=== PATIENT | female | born 1990 | race Caucasian/White ===

== ENCOUNTER → 2018-12-10 16:37 | Outpatient (CLI) | payer OTHER, SELFPAY ==
[2018-12-10 15:58] VITALS: BMI 28.0
[2018-12-10 17:11] LABS: Absolute Lymphocyte Count 2.22 X10^3/ul (0.83-4.51); Absolute Neutrophil Count 5.5 X10^3/uL (2.0-7.7); Basophil# 0.04 X10^3/uL; Basophil% 0.5 % (0-1); Eosinophil# 0.09 X10^3/uL; Eosinophils% 1.1 % (0-5); Lymphocyte # 2.22 X10^3/ul (4.0); Lymphocyte % 26.1 % (19-41); Mean Corp Hgb Conc 32.5 g/gl (32-36); Mean Platelet Vol. 9.8 fl (6.2-12.0); Monocyte# 0.65 X10^3/uL; Monocyte% 7.6 % (0-10); Neutrophil # 5.51 X10^3/uL (2.7-7.7); Neutrophil % 64.6 % (47-70); POSITIVE COUNT NO; POSITIVE DIFFERENTIAL NO; POSITIVE MORPHOLOGY NO; Platelet Count 305 K/mm3 (150-450); RBC Distribution Width CV 12.8 % (11.6-14.6); RBC Distribution Width SD 39.7 fl (35.1-43.9); Red Blood Count 4.65 M/mm3 (4.2-5.4); White Blood Count 8.5 K/mm3 (4.4-11.0)
[2018-12-10 17:49] LABS: Anion Gap 6 (5-15); BUN 12 mg/dL (7-18); BUN/Creat Ratio 20.1 RATIO (10-20); Calcium,Total 8.5 mg/dL (8.5-10.1); Chloride 110 mmol/L (98-107); EST Glomerular Filtration Rate 127 mL/min (>60); Est Glom Filt Rate - Afr Amer 154 mL/min (>60); Glucose 85 mg/dL (74-106); Potassium 3.6 mmol/L (3.5-5.1); Sodium Level 140 mmol/L (136-145); Thyroid Stim Hormone (TSH) 0.86 uIU/mL (0.358-3.74)
== END ==
LOC: LAB 16:40
PROVIDERS: Family Provider Family Medicine; PCP Family Medicine; Referring Provider Family Medicine; Visit Provider Family Medicine
DX: F32.9 Major depressive disorder, single episode, unspecified (principal); F41.9 Anxiety disorder, unspecified; R68.89 Other general symptoms and signs
CPT/HCPCS: 36415; 80048; 84443; 85025

== ENCOUNTER → 2019-10-14 10:37 | Outpatient (CLI) | payer OTHER, SELFPAY ==
[2019-10-14 10:27] VITALS: BMI 28.0
[2019-10-14 12:41] LABS: Absolute Lymphocyte Count 2.11 X10^3/uL (0.83-4.51); Absolute Neutrophil Count 4.3 X10^3/uL (2.0-7.7); Basophil# 0.04 X10^3/uL; Basophil% 0.6 % (0-1); Eosinophil# 0.09 X10^3/uL; Eosinophils% 1.3 % (0-5); Hemoglobin 12.7 g/dL (12.0-15.0); Lymphocyte # 2.11 X10^3/ul (4.0); Lymphocyte % 29.6 % (19-41); Mean Corp Hgb Conc 31.8 g/dL (32-36); Mean Corpuscular Hgb 27.9 pg (27.0-32.0); Mean Corpuscular Volume 87.7 fL (81-99); Mean Platelet Vol. 10.6 fl (6.2-12.0); Monocyte# 0.55 X10^3/uL; Monocyte% 7.7 % (0-10); NRBC Flagged by Analyzer 0 % (0-5); Neutrophil # 4.32 X10^3/uL (2.7-7.7); Neutrophil % 60.4 % (47-70); Platelet Count 300 K/mm3 (150-450); RBC Distribution Width CV 12.5 % (11.6-14.6); Red Blood Count 4.56 M/mm3 (4.2-5.4); White Blood Count 7.1 K/mm3 (4.4-11.0)
== END ==
PROVIDERS: Family Provider Internal Medicine; PCP Family Medicine; Visit Provider Family Medicine
DX: R53.83 Other fatigue (principal)
CPT/HCPCS: 36415; 85025

== ENCOUNTER → 2021-02-16 11:05 | Outpatient (CLI) | payer MEDICAID, SELFPAY ==
[2019-10-14 10:27] VITALS: BMI 28.0
[2021-02-16 13:15] LABS: Hematocrit 30.7 % (37-47); Hemoglobin 9.5 g/dL (12.0-15.0); Mean Corp Hgb Conc 30.9 g/dL (32-36); Mean Corpuscular Hgb 26.3 pg (27.0-32.0); Mean Platelet Vol. 9.8 fl (6.2-12.0); Platelet Count 315 K/mm3 (150-450); RBC Distribution Width SD 39.8 fl (35.1-43.9); Red Blood Count 3.61 M/mm3 (4.2-5.4); White Blood Count 13.5 K/mm3 (4.4-11.0)
[2021-02-16 13:21] LABS: Glucose Challenge Gest 1H 50g 97 mg/dL (70-140)
== END ==
PROVIDERS: PCP Family Medicine; Visit Provider Obstetrics & Gynecology
DX: Z34.83 Encounter for supervision of other normal pregnancy, third trimester (principal)
CPT/HCPCS: 36415; 82950; 85027

== ENCOUNTER → 2021-04-13 14:30 | Outpatient (CLI) | payer MEDICAID, SELFPAY ==
[2019-10-14 10:27] VITALS: BMI 28.0
== END ==
PROVIDERS: PCP Family Medicine; Visit Provider Obstetrics & Gynecology
DX: Z36.85 Encounter for antenatal screening for Streptococcus B (principal)
CPT/HCPCS: 87081

== ENCOUNTER 2021-05-08 15:15 | Outpatient (CLI) | payer MEDICAID, SELFPAY ==
[2019-10-14 10:27] VITALS: BMI 28.0
[2021-05-08 15:21] VITALS: BP 119/71; PULSE 92; TEMP 36.9; BMI 31.0
--- NOTE | 2021-05-09 08:25 | PCM.PN.BLA ---
Progress Note 30 yo at 40/2w presenting for induction, which had to be postponed due to emergency on Labor and Delivery. Patient feeling well aside from being frustrated with postponement. She also has URI symptoms. No fevers, no purulent nasal discharge. Recommend: nasal spray, humidifier, continued anti-histamine, OTC cold medications such as mucinex. NST REACTIVE 135/mod elizabeth/+accel/no decel. [place] irregular. Discharge home with anticipated induction later in the week.
== END 2021-05-08 16:02 | disposition home or self-care (01) ==
LOC: WPOUT 15:21 → WP 15:21
PROVIDERS: PCP Family Medicine; Referring Provider Student in an Organized Health Care Education/Training Program; Visit Provider Student in an Organized Health Care Education/Training Program
DX: Z34.93 Encounter for supervision of normal pregnancy, unspecified, third trimester (principal)
CPT/HCPCS: 59025; 59050; 99218; G0378

== ENCOUNTER 2021-05-09 12:05 | Inpatient (IN) | payer MEDICAID, SELFPAY ==
[2019-10-14 10:27] VITALS: BMI 28.0
--- NOTE | 2021-05-07 11:13 | HP.PCM.OB_ITS ---
HPI - General HPI Narrative KOJO WEBER, is a 30 F who presents [facility] Medical History (Updated 10/14/19 @ 11:[address] Salvador Monae, DO) Anxiety and depression Chronic headaches Heart murmur HPV (human papilloma virus) infection IBS (irritable bowel syndrome) Kidney stones PTSD (post-traumatic stress disorder) Seasonal allergies Home Medications lorazepam 0.5 mg tablet 0.5 mg PO QD-BID PRN #20 tab 12/10/18 [Rx Last Taken Unknown] Kenalog 40 mg/mL suspension for injection 20 mg INTRAARTIC ONCE #0.5 ml NS 10/14/19 [Clinic Last Taken Unknown] sertraline 100 mg tablet 150 mg .ROUTE .COMPLEX #120 tab 10/15/19 [Rx Last Taken Unknown] Allergy/AdvReac Type Severity Reaction Status Date / Time lamotrigine [From Lamictal] Allergy Unknown Unknown Verified 10/14/19 09:58 Family History (System 07/01/19 @ 13:39 by Shabana Jeter) Father Alcoholism Anxiety Depression Hypertension High cholesterol Lung cancer Liver disease Uncle defect Cleft Palate Aunt Crohns disease Grandmother Breast cancer Grandfather Diabetes Mother Cancer Mental and behavioral problem Psychiatric disorder Grandfather Skin cancer Surgical History History of tonsillectomy Social History (Updated 10/14/19 @ 11:[address] Salvador Monae DO) Smoking Status: Former smoker alcohol intake: never substance use type: does not use what type of physical activity do you participate in: none History Elective abortions Hx Para 1 Spontaneous abortions Hx # Term Pregnancies Ectopic pregnancies Hx # Pregnancies Multiple births # of living children Vital Signs Vital Signs Vital Signs: Weight Body Mass Index (BMI) 28.0 Labs Labs Labs: Blood Type A POSITIVE Antibody Screen NEGATIVE Hct 30.7 % (37-47) L Hgb 9.5 g/dL (12.0-15.0) L Neisseria gonorrhoeae DNA (MICHELLE) Negative (Negative) Glucose 1 Hr 50 gm 97 mg/dL (70-140) Rhogam given: No
[2021-05-08 15:21] VITALS: BMI 31.0
[2021-05-09] VITALS (50 sets, daily range): BP systolic 78–145; BP diastolic 41–89; PULSE 61–251; TEMP 36.5–37; O2SAT 84–100; BMI 30.7
[2021-05-09] MEDS: Lactated Ringers 1,000 ML 50 ML IV (12:40)
[2021-05-09 13:01] LABS: Absolute Lymphocyte Count 1.37 X10^3/uL (0.83-4.51); Absolute Neutrophil Count 7.9 X10^3/uL (2.0-7.7); Basophil# 0.03 X10^3/uL; Basophil% 0.3 % (0-1); Eosinophil# 0.07 X10^3/uL; Eosinophils% 0.7 % (0-5); Hematocrit 33.2 % (37-47); Hemoglobin 10.3 g/dL (12.0-15.0); Lymphocyte # 1.37 X10^3/ul (0.83-4.51); Lymphocyte % 13.6 % (19-41); Mean Corpuscular Hgb 24.1 pg (27.0-32.0); Mean Corpuscular Volume 77.8 fL (81-99); Mean Platelet Vol. 10.1 fl (6.2-12.0); Monocyte# 0.62 X10^3/uL; Monocyte% 6.1 % (0-10); NRBC Flagged by Analyzer 0 % (0-5); Neutrophil % 78.2 % (47-70); Platelet Count 315 K/mm3 (150-450); RBC Distribution Width CV 15.6 % (11.6-14.6); RBC Distribution Width SD 43.7 fl (35.1-43.9); Red Blood Count 4.27 M/mm3 (4.2-5.4); White Blood Count 10.1 K/mm3 (4.4-11.0)
[2021-05-09] MEDS: Oxytocin 30 units/NS 500 ml 30 UNITS/500 ML IV.SOLN IV (13:18)
--- NOTE | 2021-05-09 17:51 | PCM.HP.BLA ---
History and Physical Date of Admission: 05/09/21 Chief complaint: Induction of labor at term History of present illness: 30-year-old G3, P2 at 40 weeks and 3 days with NOHEMI: 05/06/2021 by LMP arrives for induction of labor at term. Denies headache, visual changes, chest pain, shortness of breath, nausea/vomiting, right upper quadrant pain. Patient states good movement. Obstetric history: G1: 41-week 03/14/2011 female G2: 41-week 10/01/2015 male G3: Current Past medical history: Anxiety Medications: vitamin, sertraline Allergies: Lamictal Past surgical history: Tonsils and adenoids Social history: Former smoker, denies alcohol or drug use Family history: Denies history DVT or PE Review of systems: Besides above pertinent positives a full review of systems was performed found to be negative Physical exam: Vital signs: Blood pressure 127/71 pulse 83 temperature 98.0 General: Normal-appearing no acute distress HEENT: Normocephalic atraumatic no cervical of adenopathy Cardiac/respiratory: Nonlabored breathing, no use of accessory muscles Abdomen: Soft, nontender, gravid Pelvic exam: Cervical exam 3/50/-3 AROM clear fluid Extremities: No peripheral edema normal peripheral pulses Psych: Normal affect normal demeanor nonpressured speech Assessment and plan: 30-year-old at 40 weeks and 3 days for induction of labor at term. Initially arrived for Pitocin induction now with AROM for clear fluid. -Admit labor and delivery -CEFM -GBS negative -Routine orders -Anesthesia to see
[2021-05-09] MEDS: Lactated Ringers 500 ML 999 ML IV ×2 (18:00→20:33)
[2021-05-09 18:42] LABS: Probe Check PASS; Sample Adequacy Control PASS; Specimen Processing Control PASS; Trichomonas Vag DNA by PCR Negative (Negative)
[2021-05-09] MEDS: fentaNYL-bupivacaine (epidural) 100 ML BAG EPIDURAL ×2 (18:56→23:10)
[2021-05-09] MEDS: Mag Hydrox/Al Hydrox/Simeth 30 ML UDC PO (19:42)
[2021-05-09] MEDS: Ondansetron 4 MG/2 ML Vial IV (20:49)
[2021-05-09] MEDS: 0.9% Saline Lock 10 ML Syringe IV (20:50)
[2021-05-09] MEDS: Lactated Ringers 1,000 ML 200 ML IV (22:35)
[2021-05-10] VITALS (17 sets, daily range): BP systolic 103–134; BP diastolic 53–85; PULSE 52–114; RESP 16–18; TEMP 36.3–37.1; O2SAT 97–100
[2021-05-10] MEDS: Oxytocin 30 units/NS 500 ml 30 UNITS/500 ML IV.SOLN 334 UNITS IV (00:35)
--- NOTE | 2021-05-10 01:10 | EX.PCM.OBRPT ---
Vaginal Delivery Operative Information Date of Procedure: 05/10/21 Findings Description of Procedure: Normal spontaneous vaginal delivery of a viable female , vertex PAT. Head and shoulders delivered with ease. Cord cut and clamped. Baby handed off to patient. Placenta delivered via cord traction and fundal massage. Second-degree midline perineal laceration noted and repaired in typical fashion. EBL 300 cc Apgars 9/9
[2021-05-10] MEDS: Ibuprofen 600 MG Tablet PO ×3 (02:58→17:30)
[2021-05-10] MEDS: Acetaminophen 500 MG Tablet 1000 MG PO ×3 (04:55→21:21)
[2021-05-10] MEDS: Benzocaine/Lanolin/Aloe Vera 1 SPRAY EACH TOPICAL (12:40)
[2021-05-11 01:20] VITALS: BP 118/72; PULSE 86; RESP 16; O2SAT 98
[2021-05-11] MEDS: Ibuprofen 600 MG Tablet PO ×3 (02:43→23:17)
--- NOTE | 2021-05-11 07:09 | PCM.PN.OB ---
Subjective Subjective No issues overnight. Reports little sleep however and is tired. She is bottlefeeding. OOB, ambulating and voiding without difficulty. Denies heavy lochia. Objective Data Objective Data Vital Signs: Vital Signs Temp Pulse Resp BP Pulse Ox 97.4 F L 86 16 118/72 98 05/10/21 21:23 05/11/21 01:20 05/11/21 01:20 05/11/21 01:20 05/11/21 01:20 Oxygen Delivery Method Room Air Weight: 81.284 kg Body Mass Index (BMI) 30.7 Intake & Output: Intake and Output for Last 24 Hours 05/09/21 05/10/21 05/11/21 23:59 23:59 23:59 Intake Total 2035.94 / 2035.94 926.5 / 926.5 Output Total 600 / 600 1200 / 1200 Balance 1435.94 / 1435.94 -273.5 / -273.5 Lab / Micro Data Result Diagrams: 05/09/21 12:40 Micro: Microbiology 05/09/21 12:45 Mucosa - Nose SARS-CoV-2 Antigen (Rapid) - Final Physical Exam Const alert, oriented x3 and no apparent distress Resp normal respiratory effort and normal air movement Cardio regular rate, regular rhythm, S1 normal heart sound and S2 normal heart sound Uterus Palpation: uterus fundus firm and other OB fundus nontender Extremity no calf tenderness Extremity Narrative: trace b/l pedal edema Neuro oriented x3 Assessment & Plan (1) (spontaneous vaginal delivery): PLAN: Routine care Rh positive, Rubella immune Will d/c later today if patient desires, pt considering Bottlefeeding
[2021-05-11 08:13] VITALS: BP 111/72; PULSE 70; RESP 17; TEMP 36.1; O2SAT 99
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
--- NOTE | 2021-05-11 10:29 | CASEMGMT ---
Social Work Labor and Delivery Consult received. Medical records reviewed. This play writer familiar with patient/mother of baby from prior delivery. Presented to MOB room. MOB resting in bed and MOB's grandmother holding baby. Introduced to self and role. Discussed completing intervention at this time or later today, as MOB appeared to be resting. MOB voiced preference to talking to this play writer later. MOB voiced being uncertain as to whether will be leaving today or tomorrow. Plan: Check back with MOB later today. -KIKE Courtney, CASTING MACHINE OPERATOR AUTOMATIC
[2021-05-11 13:16] VITALS: BP 117/83; PULSE 84; RESP 16; TEMP 36.4; O2SAT 99
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
[2021-05-11 21:25] VITALS: BP 120/66; PULSE 89; RESP 18; TEMP 36.3; O2SAT 96
[2021-05-12 02:55] VITALS: BP 105/70; PULSE 82; RESP 18
[2021-05-12 08:35] VITALS: BP 108/75; PULSE 87; RESP 16; TEMP 36.8
[2021-05-12] MEDS: Ibuprofen 600 MG Tablet PO (08:49)
--- NOTE | 2021-05-12 09:12 | PCM.PN.OB ---
Subjective Subjective No issues overnight. She did get more sleep. Cramping is improved. Denies heavy lochia. Objective Data Objective Data Vital Signs: Vital Signs Temp Pulse Resp BP Pulse Ox 98.2 F 87 16 108/75 96 05/12/21 08:35 05/12/21 08:35 05/12/21 08:35 05/12/21 08:35 05/11/21 21:25 Oxygen Delivery Method Room Air Weight: 81.284 kg Body Mass Index (BMI) 30.7 Intake & Output: Intake and Output for Last 24 Hours 05/10/21 05/11/21 05/12/21 23:59 23:59 23:59 Intake Total 926.5 / 926.5 Output Total 1200 / 1200 Balance -273.5 / -273.5 Lab / Micro Data Result Diagrams: 05/09/21 12:40 Micro: Microbiology 05/09/21 12:45 Mucosa - Nose SARS-CoV-2 Antigen (Rapid) - Final Physical Exam Const alert, oriented x3 and no apparent distress Resp normal respiratory effort and normal air movement Cardio regular rate, regular rhythm, S1 normal heart sound and S2 normal heart sound Uterus Palpation: uterus fundus firm and other OB fundus nontender Extremity no calf tenderness Extremity Narrative: trace LE edema Neuro oriented x3 Assessment & Plan (1) (spontaneous vaginal delivery): COMMENT: PPD#2 PLAN: d/c home today
--- NOTE | 2021-05-12 09:14 | PCM.DC ---
Discharge Instructions Diet Discharge Diet: No restrictions Activity May resume sexual activity in: 4-6 weeks Dressing / Incision Call your doctor if you observe: Fever of 101 or Higher, Using more than 1 pad per hour, Shortness of breath, Chest pain, Calf discomfort, Uncontrolled pain and - (Persistent or severe headache) Follow Up Care Please Follow Up With: Ester Valles MD When: 3 weeks for telehealth follow up 6 weeks for visit Test Results: Test results from this visit will be discussed in further detail at your follow-up appointment, if applicable. Discharge Plan Admission Admit Date/Time: 05/09/21 12:05 Primary Reason for Your Visit: Vaginal delivery Attending Provider: Sid Glaser Primary Care Provider: Salvador Monae Instructions Patient Instructions: After a Vaginal Discharge Orders/Prescriptions Prescriptions: New ibuprofen 600 mg Tablet 600 mg PO Q8H PRN PRN (Reason: pain) 7 Days Qty: 30 RF: 0 Continued [id number] 1 mg Tablet 1 tab PO DAILY RF: 0 Referrals / Follow Up: Salvador Monae DO [Primary Care Provider] - Disposition Disposition (needs filled in before D/C Order can be placed): Home, Self Care
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
== END 2021-05-12 11:10 | disposition home or self-care (01) | DRG 560 ==
PROVIDERS: Admitting Provider Obstetrics & Gynecology; PCP Family Medicine; Referring Provider Obstetrics & Gynecology; Visit Provider Obstetrics & Gynecology
DX: O70.1 Second degree perineal laceration during delivery (principal); Z37.0 Single live birth; Z3A.40 40 weeks gestation of pregnancy; Z87.891 Personal history of nicotine dependence
CPT/HCPCS: 59025; 59050; 85025; 86850; 86900; 86901; 87426; 87661; 99218; J7120; A4216; G0378; J2405

== ENCOUNTER → 2021-10-25 13:44 | Outpatient (CLI) | payer MEDICAID, SELFPAY ==
[2021-10-28 02:07] LABS: Chlamydia By Nucleic Acid AMP Negative (Negative)
[2021-10-28 07:45] LABS: Gonococcus By Nucleic Acid AMP Negative (Negative)
[2021-10-31 13:19] LABS: HPV APTIMA, High Risk Positive (Negative)
[2021-10-31 13:28] LABS: HPV Reflexed? YES, CHARGE PATIENT
== END ==
PROVIDERS: PCP Family Medicine; Visit Provider Obstetrics & Gynecology
DX: Z12.4 Encounter for screening for malignant neoplasm of cervix (principal); Z11.3 Encounter for screening for infections with a predominantly sexual mode of transmission
CPT/HCPCS: 87491; 87591; 87624; 88175; G0145

== ENCOUNTER → 2021-10-30 15:34 | Outpatient (CLI) | payer MEDICAID, SELFPAY ==
[2021-10-30 16:43] LABS: Absolute Neutrophil Count 8.4 X10^3/uL (2.0-7.7); Basophil# 0.04 X10^3/uL; Basophil% 0.4 % (0-1); Eosinophil# 0.14 X10^3/uL; Eosinophils% 1.2 % (0-5); Hemoglobin 11.3 g/dL (12.0-15.0); Lymphocyte % 17.7 % (19-41); Mean Corp Hgb Conc 31.4 g/dL (32-36); Mean Corpuscular Volume 82.8 fL (81-99); Mean Platelet Vol. 10.2 fl (6.2-12.0); Monocyte# 0.73 X10^3/uL; Monocyte% 6.5 % (0-10); NRBC Flagged by Analyzer 0 % (0-5); Neutrophil # 8.35 X10^3/uL (2.7-7.7); Neutrophil % 73.8 % (47-70); Platelet Count 410 K/mm3 (150-450); RBC Distribution Width CV 13.2 % (11.6-14.6); RBC Distribution Width SD 40.1 fl (35.1-43.9); Red Blood Count 4.35 M/mm3 (4.2-5.4); White Blood Count 11.3 K/mm3 (4.4-11.0)
[2021-10-31 09:23] LABS: HIV - WCH Non-Reactive (Nonreactive); Hepatitis B Surface Antigen Non-Reactive (Nonreactive); Hepatitis C Antibody Non-Reactive (Nonreactive); Rubella IgG Reactive (Nonreactive); Syphilis Antibodies Non-reactive
== END ==
PROVIDERS: PCP Family Medicine; Visit Provider Obstetrics & Gynecology
DX: Z34.81 Encounter for supervision of other normal pregnancy, first trimester (principal)
CPT/HCPCS: 36415; 85025; 86703; 86762; 86780; 86803; 87086; 87088; 87340

== ENCOUNTER 2022-02-21 14:25 | Outpatient (CLI) | payer MEDICAID, SELFPAY ==
[2022-02-21 15:37] LABS: Hematocrit 30.4 % (37-47); Hemoglobin 9.5 g/dL (12.0-15.0); Mean Corp Hgb Conc 31.3 g/dL (32-36); Mean Corpuscular Hgb 24.5 pg (27.0-32.0); Mean Corpuscular Volume 78.4 fL (81-99); Mean Platelet Vol. 9.9 fl (6.2-12.0); Platelet Count 338 K/mm3 (150-450); RBC Distribution Width CV 13.3 % (11.6-14.6); RBC Distribution Width SD 38.2 fl (35.1-43.9); Red Blood Count 3.88 M/mm3 (4.2-5.4)
[2022-02-21 15:43] LABS: Glucose Challenge Gest 1H 50g 91 mg/dL (70-140)
== END 2022-02-21 23:59 | disposition home or self-care (01) ==
LOC: WOBLAB 14:28
PROVIDERS: PCP Family Medicine; Visit Provider Obstetrics & Gynecology
DX: Z34.83 Encounter for supervision of other normal pregnancy, third trimester (principal)
CPT/HCPCS: 36415; 82950; 85027

== ENCOUNTER → 2022-04-17 | Outpatient (CLI) | payer MEDICAID, SELFPAY | END | disposition home or self-care (01) | LOC: LABSPEC 13:22 | PROVIDERS: PCP Family Medicine; Visit Provider Obstetrics & Gynecology | DX: Z36.85 Encounter for antenatal screening for Streptococcus B (principal) | CPT/HCPCS: 87081 ==

== ENCOUNTER 2022-05-16 20:24 | Inpatient (IN) | payer MEDICAID, SELFPAY ==
[2022-05-16] MEDS: Lactated Ringers 1,000 ML 50 ML IV (21:25)
[2022-05-16 21:38] VITALS: BP 117/71; PULSE 87
[2022-05-16 21:39] VITALS: TEMP 36.7
[2022-05-16 21:40] LABS: Absolute Lymphocyte Count 1.73 X10^3/uL (0.83-4.51); Absolute Neutrophil Count 9.4 X10^3/uL (2.0-7.7); Basophil# 0.02 X10^3/uL; Basophil% 0.2 % (0-1); Eosinophil# 0.05 X10^3/uL; Eosinophils% 0.4 % (0-5); Hematocrit 33.4 % (37-47); Hemoglobin 9.9 g/dL (12.0-15.0); Lymphocyte # 1.73 X10^3/ul (0.83-4.51); Lymphocyte % 14.4 % (19-41); Mean Corp Hgb Conc 29.6 g/dL (32-36); Mean Corpuscular Volume 74.2 fL (81-99); Mean Platelet Vol. 10.4 fl (6.2-12.0); Monocyte# 0.68 X10^3/uL; Monocyte% 5.7 % (0-10); NRBC Flagged by Analyzer 0 % (0-5); Neutrophil # 9.44 X10^3/uL (2.7-7.7); Neutrophil % 78.6 % (47-70); Platelet Count 313 K/mm3 (150-450); RBC Distribution Width CV 18.1 % (11.6-14.6); RBC Distribution Width SD 47.3 fl (35.1-43.9)
[2022-05-16 21:46] VITALS: BMI 33.2
[2022-05-16] MEDS: LACTATED RINGERS 500 ML 999 ML IV ×2 (22:39→23:39)
[2022-05-16 23:41] VITALS: BP 113/70; PULSE 75; TEMP 36.5
[2022-05-17] VITALS (59 sets, daily range): BP systolic 96–135; BP diastolic 53–80; PULSE 75–109; RESP 14–18; TEMP 35.2–37.2; O2SAT 97–100
[2022-05-17] MEDS: fentaNYL-bupivacaine (epidural) 100 ML BAG EPIDURAL ×2 (00:43→04:54)
[2022-05-17] MEDS: Mag Hydrox/Al Hydrox/Simeth 30 ML UDC PO (02:12)
[2022-05-17] MEDS: Oxytocin 30 units/NS 500 ml 30 UNITS/500 ML IV.SOLN IV (02:30)
[2022-05-17] MEDS: Lactated Ringers 1,000 ML 200 ML IV (04:55)
[2022-05-17] MEDS: Ondansetron 4 MG/2 ML Vial IV (05:26)
[2022-05-17] MEDS: Oxytocin 30 units/NS 500 ml 30 UNITS/500 ML IV.SOLN 334 UNITS IV (06:34)
--- NOTE | 2022-05-17 06:45 | PCM.HP.BLA ---
History and Physical Date of Admission: 05/16/22 ACOG ANTEPARTUM RECORD - HISTORY AND PHYSICAL (05/17/2022) Name: JESIKA WEBER History of this : This is a 31 year old [id number] presents at 40 wks + 1 days gestation with SROM at home in early labor. OB Physician: Heriberto Blanton MD Hayes's Physician: Abbie ...................................................................... : 1990 Age: 31 Address: [address] [place] [address] Phone: ([phone] Insurance Carrier: [employer] CLAIMS DEPT [id number] Emergency Contact: TWIN WEBER [phone] ...................................................................... Final NOHEMI: 05/15/22 By Ultrasound: PARITY: (G-Total Pregnancies P-Fullterm,Premature,Induced AB,Spont AB, Ectopics, Multiple,Living) NOHEMI CONFIRMATION: By LMP: 08/08/21 Final NOHEMI: 05/15/22 OB PROBLEM LIST: ALLERGIC TO LAMICTAL! Declines genetic and carrier screening EPDS = 11. Depression/anxiety, PTSD., unspecified personality disorder Genetic and carrier screening declined New FOB this . He has 3 other children Quit smoking 4 months ago Recall of shoulder dystocia second delivery; check u/s 34-36 weeks for EFW; considering primary --no mention of shoulder dystocia in delivery note but there is discussion of shoulder delivery--prefers to avoid if possible Short interval between pregnancies Undecided about infant feeding method ALLERGIES: Lamictal Hives and/or rash MEDICATIONS: ferrous sulfate 325 mg (65 mg iron) tablet One pill by mouth twice a day as tolerated + DHA 28 mg iron- 975 mcg-200 mg combo pack As Directed SOCIAL HISTORY: Smoking - Quit upon realizing pg. Alcohol Use - denies drinking Diet - no special diet Lifestyle - moderate stress lifestyle and single Exercise - minimal Employer - [employer] Job Description - Illicit Drug Use - denies use of street drugs Sexual Activity - [employer] Residence - Lives with jason' and her children Place of - [place], [place] Spouse-Sig Other Name - Eugene Dos Santos Spouse-Sig Other Occupation - Cook at [employer] Children Name(s) - Jules Avila Emerald PRIOR DELIVERY HISTORY DEL DATE GEST LAB WT LB WT OZ TYPE ANES LABOR TX 04 March 21 41 16 7 12 Vag Epidural No Sep 25 41 8 8 5 Vag Epidural No May 01 40 19 8 11 Vag Epidural No ANTEPARTUM FLOW CHART VISIT RTC FU F F NJ U U DATE WK MD WKS HT PN HR M SS BP ED WT NJ GL D EF ST __ ____ ___ __ __ ___ __ __ __ ___ __ __ __ ___ __ 06 May JMW 1 38 V + + 118/72 0 193 - - S Apr JMW 1 38 V + + 110/76 0 193 tr - 2 50 -2 Apr JMW 1 37 V + + 114/70 0 191 tr ne S Apr JMW 1 37 V + + 120/68 sl 191 1+ - 1 50 hi Apr JMW 1 36 V + + 132/74 sl 188 ne ne S March JMW 2 34 V + + 104/72 0 188 - - ft 50 hi April 10 JMW 2 31 + + 120/64 0 185 tr - Mar 08 JMW 3 28 + + 130/60 0 184 tr - Feb 02 JMW 3 25 + + 120/64 0 184 tr - Dec 31 JMW 4 20 + + 122/78 0 178 tr ne Nov 26 JMW 4 16 + ? 122/64 167 20 Oct 21 JM 4 - - on O 108/60 0 163 - - ANTEPARTUM NOTE(S): May 16 2022: Good FM May 09 2022: ctx's/ BH's, pelvic pressure May 01 2022: FM well, symphasis pubis pain Apr 24 2022: ctx's, pelvic pressure/ pain Apr 17 2022: GBS Today, signed/declined LARC form,Good FM Apr 03 2022: symphasis pubis pain; consider walker Mar 14 2022: Good FM Feb 21 2022: see note, One Hr PG today Jan 31 2022: leaking urine and vaginal irritation, food FM Dec 28 2021: c/o heartburn, Pepcid; u/s ok. Nov 29 2021: Nausea continues Oct 30 2021: nausea COMPREHENSIVE ANTEPARTUM NOTE(S): May 16 2022: Jesika 40w1d here for PNV good FM no edema no concerns Would like cervical check. States she is having contractions nothing timable. BR May 09 2022: Jesika is here for a pnv at 39/1. Good FM. No edema present. Ctx's/ albert harris. Pelvic pressure and discomfort continues. Desires cervix check. MK Apr 25 2022: H taken to OB tkg Apr 24 2022: Jesika is here for her pnv at 37/0. Good FM. Sl edema in b/l ankles. Reports ctx's, occasionally timeable. Continues w/ pelvic pressure and pain that affects walking. MK Apr 03 2022: Jesika is here for a pnv at 34/0. Good FM. No edema present. Reports severe groin/ pelvic pain. Pt states it feels as if she has been punch in between her legs repeatedly. Denies ctx's. No other concerns expressed at this time. MK Mar 14 2022: Jesika is 31w1d here for PNV good FM no edema. C/O muscle weakness in her upper inner thighs/ pelvic area. States its hard to hold herself up at times. BR Feb 21 2022: Jesika is being seen for PNV. 28 weeks and 1 day. Glucola today. Pt complains of restless legs in the evening and at night. 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 AM Nov 29 2021: Jesika is here for a NOB visit at 16 w 1 d, with a PNV with Dr. Balnton to follow. She is a 31 year old with an NOHEMI of 05/15/2022. Jesika resides with her finance', Eugene Dos Santos, and her children. Eugene is a new FOB for this preganncy, and he has three older children, ages 6, 8, and 16; he does not have any custody. Jesika's two older children are from a prior relationship, she has full Oct 30 2021: Jesika 11w3d, is here today for PNV. Still having some nausea but no vomitting. Otherwise doing well. BR Oct 30 2021: 11wk, PNP today. Declines genetic screening. Considering elecive primary c/s. JM Oct 25 2021: ok Oct 25 2021: Jesika presents here today with FOB(Eugene) for Missed Menses appointment. 31 y.o. G 4 P 3 previous smoker(quit when she found out she was ) with regular menses and LMP of approximately 08/08/21 lasting her average of 5-6 days. UPT is positive today in our Office. Denies spotting/bleeding thus far in . Presents at approximately 11 weeks 1 day with an NOHEMI of 07-05-22. History of REVIEW OF SYSTEMS: GENERAL - Denies fever, or chills SKIN - Denies rash, new skin lesions, or change in moles EYES - Denies blurred vision, or change in visual acuity EARS - Denies ear pain, or difficulty hearing NOSE - Denies nasal congestion, discharge, or bleeding MOUTH - Denies sore throat, or difficulty swallowing NECK - Denies pain or swelling RESPIRATORY - Denies shortness of breath, cough, wheezing CARDIOVASCULAR - Denies palpitations, chest pain, orthopnea, PND, peripheral edema, syncope or claudication GASTROINTESTINAL - Denies nausea, vomiting, diarrhea, constipation, Denies abdominal pain, melena and or bright red blood GENITOURINARY - Denies dysuria, frequency of urination, urgency, or hesitancy MUSCULOSKELETAL - Denies joint or muscle pain, or back pain NEUROLOGICAL - Denies localized numbness, weakness, or tingling PSYCHIATRIC - Denies depression, anxiety, substance abuse or suicide attempts ENDOCRINE - Denies heat or cold intolerance, weight loss or gain, increasing thirst HEMATO-IMMUNOLOGIC - Denies easy bruising, bleeding, oral ulcerations or recurrent infections GENETICS SCREENING: Age 35+ years: No Thalassemia: No Neural Tube Defect: No Down Syndrome: No FLAQUITA-SACHS: No Sickle Cell Disease: No Hemophilia: No Musc. Dystrophy: No Cystic Fibrosis: No-declines screening [place] Chorea: No Mental Retardation: No Fragile X: No Other genetic: No Other defects: No SABs/still births: No Drugs since LMP: Yes INFECTION HISTORY: High risk AIDS: No High risk Hepatitis: No Exposed to TB: No Exposed to Herpes: No Rash/viral illness since LMP: No History of STD: No Comments: HPV MENSTRUAL HISTORY: *Menses Amount/Duration: 5-6 DAYSMenses Regularity: RegularFrequency: monthlyBCP's at Conception: NoMenarche (Age Onset): 12* PAST SUMMARY: PARITY: 1. Total Pregnancies............ 4 2. Full Term Pregnancies........ 3 3. Premature.................... 0 4. Abortions - Induced.......... 0 5. Abortions - Spontaneous...... 0 6. Ectopics..................... 0 7. Multiple Births.............. 0 8. Living Children.............. 3 PAST #1: Date of :.................. 03/14/11 Gestation Weeks:................ 41 Length of labor(hours):......... 16 Sex:............................ F Weight-lbs:............... 7 Weight-oz:................ 12 Type of Delivery:............... Vag Type of Anesthesia:............. Epidural Place of Delivery:.............. [place] Treatment of Labor?:.... No Comment: PAST #2: Date of :.................. 10/01/15 Gestation Weeks:................ 41 Length of labor(hours):......... 8 Sex:............................ M Weight-lbs:............... 8 Weight-oz:................ 5 Type of Delivery:............... Vag Type of Anesthesia:............. Epidural Place of Delivery:.............. [place] Treatment of Labor?:.... No Comment: IOL PAST #3: Date of :.................. 05/10/21 Gestation Weeks:................ 40 Length of labor(hours):......... 19 Sex:............................ F Weight-lbs:............... 8 Weight-oz:................ 11 Type of Delivery:............... Vag Type of Anesthesia:............. Epidural Place of Delivery:.............. [place] Treatment of Labor?:.... No Comment: IOL PHYSICAL EXAMINATION General Appearence: 31 yo female in no acute distress Vital Signs: AF, VSS Heart: RRR without rubs or gallops Lungs: CTA x 2 Breasts: deferred Abdomen: gravid Pelvis: Cervix: Presentation: cephalic Station: Fetus: Size: AGA Movement: present Heart: present LAB TEST(S) ORDERED SINCE:08/18/21 11/01/2021 URINE CULTURE 10/31/2021 RUBELLA IGG 10/31/2021 PAP IG HPV HR APTIMA 10/31/2021 L509.8000 10/31/2021 HIV - [facility] 10/31/2021 HEPATITIS C ANTIBODY 10/31/2021 HEPATITIS B SURFACE ANTIGEN 10/30/2021 T AND S-NO CHARGE W/PNP 10/30/2021 CBC W/DIFF, AUTOMATED 10/28/2021 CHLAMYDIA/GC MICHELLE APTIMA 05/16/2022 TYPE AND SCREEN 05/16/2022 COVID 19 AG RAPID (RN COLLECT) 05/16/2022 CBC W/DIFF, AUTOMATED 04/20/2022 RULE OUT BETA STREP (GRP. B) 02/21/2022 GLUCOSE CHALLENGE GEST 1H 50G 02/21/2022 CBC-COMPLETE BLOOD CNT NO DIFF == ==== Order Observation Description Value Ref_Range A* Site == ==== Labor [facility]~[address] [place], [address]~ TYPE AND SCRE AB SCREEN GEL NEGATIVE ML COVID 19 AG RAP NOTE MARKS CBC W/DIFF, AUT NOTE MARKS CBC W/DIFF, AUT WBC 12.0 K/mm3 4.4-11.0 H ML CBC W/DIFF, AUT RBC 4.50 M/mm3 4.2-5.4 ML CBC W/DIFF, AUT HGB 9.9 g/dL 12.0-15.0 L ML CBC W/DIFF, AUT HCT 33.4 37-47 L ML CBC W/DIFF, AUT MCV 74.2 fL 81-99 L ML CBC W/DIFF, AUT MCH 22.0 pg 27.0-32.0 L ML CBC W/DIFF, AUT MCHC 29.6 g/dL 32-36 L ML CBC W/DIFF, AUT RDW CV 18.1 11.6-14.6 H ML CBC W/DIFF, AUT RDW SD 47.3 fl 35.1-43.9 H ML CBC W/DIFF, AUT PLT 313 K/mm3 150-450 ML CBC W/DIFF, AUT MPV 10.4 fl 6.2-12.0 ML CBC W/DIFF, AUT NEUT% 78.6 47-70 H ML CBC W/DIFF, AUT LY% 14.4 19-41 L ML CBC W/DIFF, AUT MONO% 5.7 0-10 ML CBC W/DIFF, AUT EO% 0.4 0-5 ML CBC W/DIFF, AUT BASO% 0.2 0-1 ML CBC W/DIFF, AUT IG% 0.700 0.0-0.9 ML IG% - Immature Granulocytes (promyelocytes, myelocytes and metamyelocytes) > 1% indicates that a LEFT SHIFT is Present. CBC W/DIFF, AUT ABSOLUTE NEUT 9.4 X10 3/uL 2.0-7.7 H ML CBC W/DIFF, AUT ABSOLUTE LYMPH 1.73 X10 3/uL 0.83-4.51 ML CBC W/DIFF, AUT NUCLEATED RBC 0 0-5 ML RULE OUT BETA S NOTE MARKS GLUCOSE CHALLEN NOTE MARKS GLUCOSE CHALLEN GLU GEST 50G 1H 91 mg/dL 70-140 ML CBC-COMPLETE BL NOTE MARKS CBC-COMPLETE BL WBC 13.0 K/mm3 4.4-11.0 H ML CBC-COMPLETE BL RBC 3.88 M/mm3 4.2-5.4 L ML CBC-COMPLETE BL HGB 9.5 g/dL 12.0-15.0 L ML CBC-COMPLETE BL HCT 30.4 37-47 L ML CBC-COMPLETE BL MCV 78.4 fL 81-99 L ML CBC-COMPLETE BL MCH 24.5 pg 27.0-32.0 L ML CBC-COMPLETE BL MCHC 31.3 g/dL 32-36 L ML CBC-COMPLETE BL RDW CV 13.3 11.6-14.6 ML CBC-COMPLETE BL RDW SD 38.2 fl 35.1-43.9 ML CBC-COMPLETE BL PLT 338 K/mm3 150-450 ML CBC-COMPLETE BL MPV 9.9 fl 6.2-12.0 ML URINE CULTURE NOTE MARKS HEPATITIS C ANT NOTE MARKS HEPATITIS C ANT HEPATITIS C AB Non-Reactive Nonreactive ML Non Reactive: < 0.8 Equivocal: >/= 0.8 to < 1.0 Reactive: >/= 1.0 The CDC recommends that a reactive/equivocal HCV antibody result be followed up by the HCV Nucleic Acid Amplification test (164773) HEPATITIS B ERLIN NOTE MARKS HEPATITIS B ERLIN HEP B SURF AG Non-Reactive Nonreactive ML HIV - WC NOTE MARKS HIV - [facility] HIV Non-Reactive Nonreactive ML L509.8000 NOTE MARKS L509.8000 SYPHILIS ABS Non-reactive ML RUBELLA IGG NOTE MARKS RUBELLA IGG RUBELLA IGG Reactive Nonreactive ML Antibody Results Interpretation of Immune Status Non Reactive Presumed Non-Immune Equivocal Equivocal Reactive Presumed Immune PN N [facility]~[address] [place], [address]~ T AND AB SCREEN GEL NEGATIVE ML CBC W/DIFF, AUT NOTE MARKS CBC W/DIFF, AUT WBC 11.3 K/mm3 4.4-11.0 H ML CBC W/DIFF, AUT RBC 4.35 M/mm3 4.2-5.4 ML CBC W/DIFF, AUT HGB 11.3 g/dL 12.0-15.0 L ML CBC W/DIFF, AUT HCT 36.0 37-47 L ML CBC W/DIFF, AUT MCV 82.8 fL 81-99 ML CBC W/DIFF, AUT MCH 26.0 pg 27.0-32.0 L ML CBC W/DIFF, AUT MCHC 31.4 g/dL 32-36 L ML CBC W/DIFF, AUT RDW CV 13.2 11.6-14.6 ML CBC W/DIFF, AUT RDW SD 40.1 fl 35.1-43.9 ML CBC W/DIFF, AUT PLT 410 K/mm3 150-450 ML CBC W/DIFF, AUT MPV 10.2 fl 6.2-12.0 ML CBC W/DIFF, AUT NEUT% 73.8 47-70 H ML CBC W/DIFF, AUT LY% 17.7 19-41 L ML CBC W/DIFF, AUT MONO% 6.5 0-10 ML CBC W/DIFF, AUT EO% 1.2 0-5 ML CBC W/DIFF, AUT BASO% 0.4 0-1 ML CBC W/DIFF, AUT IG% 0.400 0.0-0.9 ML IG% - Immature Granulocytes (promyelocytes, myelocytes and metamyelocytes) > 1% indicates that a LEFT SHIFT is Present. CBC W/DIFF, AUT ABSOLUTE NEUT 8.4 X10 3/uL 2.0-7.7 H ML CBC W/DIFF, AUT ABSOLUTE LYMPH 2.00 X10 3/uL 0.83-4.51 ML CBC W/DIFF, AUT NUCLEATED RBC 0 0-5 ML PAP IG HPV HR A NOTE MARKS PAP IG HPV HR A DIAG Comment . LCI NEGATIVE FOR INTRAEPITHELIAL LESION OR MALIGNANCY. FUNGAL ORGANISMS MORPHOLOGICALLY CONSISTENT WITH HI SPECIES ARE PRESENT. PAP IG HPV HR A ADEQ Comment . LCI Satisfactory for evaluation. No endocervical component is identified. An endocervical component is not commonly seen in the patient. PAP IG HPV HR A PERFORM Comment . LCI Yamilex Vincent Cap Sewer This liquid based ThinPrep(R) pap test was screened with the use of an image guided system. PAP IG HPV HR A COMM . . LCI PAP IG HPV HR A PAPSMR Comment . LCI The Pap smear is a screening test designed to aid in the detection of premalignant and malignant conditions of the uterine cervix. It is not a diagnostic procedure and should not be used as the sole means of detecting cervical cancer. Both false-positive and false-negative reports do occur. PAP IG HPV HR A HPV APTIMA, HR Positive Negative A LCI This nucleic acid amplification test detects fourteen high- risk HPV types (16,18,31,33,35,39,45,51,52,56,58,59,66,68) without differentiation. Performed at: [address], [address] [id number] Educational Aide: Reina Jarvis MD, Phone: [phone] Performed at: =[address] [id number] Educational Aide: Reina Jarvis MD, Phone: [phone] CHLAMYDIA/GC NA NOTE MARKS CHLAMYDIA/GC NA CHLAMY,NUC ACID Negative Negative LCI CHLAMYDIA/GC NA GC BY NUC ACID Negative Negative LCI Performed at: =[address] [id number] Educational Aide: Reina Jarvis MD, Phone: [phone] A POSITIVE *Negative results from patients with symptom onset beyond five days should be treated as presumptive and confirmed by a molecular assay if clinically necessary. Negative results should not be used as the sole basis for treatment or for patient management. SARS-CoV-2 Ag Resp Ql IA.rapid *Positive results do not differentiate between SARS-CoV and SARS-CoV-2. If differentiation of the specific SARS virus is desired an additional sample and an additional order is required. SARS-CoV-2 Ag Resp Ql IA.rapid * This test has not been FDA cleared or approved; the test has been authorized by FDA under an Emergency Use Authorization (EAU) for use by laboratories certified under CLIA that meet the requirements to perform moderate, high, or waived complexity tests. SARS-CoV-2 Ag Resp Ql IA.rapid Normal Reference Range: Negative SARS-CoV-2 (COVID 19) Negative RAPID METHOD BinaxNow COVID19 Ag Card Group B Beta Streptococcus is not isolated. Mixed Gram Positive Organisms Britt Count <FONT COLOR=#[id number] MIXC Mixed contaminants. Submit a new specimen if indicated. A POSITIVE == ==== Impression /Plan: 40 wks + 1 days intrauterine with SROM at home in early labor. Preparations in progress for delivery.
--- NOTE | 2022-05-17 06:47 | EX.PCM.OBRPT ---
Maternal Data Information Final NOHEMI Source: <20 weeks Gestational age: 40+ weeks gestation Vaginal Delivery Maternal Presentation Maternal Presentation: Spontaneous Rupture of Membranes Operative Information Date of Procedure: 05/17/22 Pre-Operative Diagnosis: IUP Post-Operative Diagnosis: IUP Surgery / Procedure Performed: Vacuum Assisted Vaginal Delivery Type of Anesthesia: Epidural Estimated Blood Loss: 250 cc Fluids Replaced: Crystalloid Findings Description of Procedure: Spontaneous vaginal delivery of a viable male infant with Apgars of 8/9 from an occiput anterior presentation with clear amniotic fluid and normal three-vessel placenta. Cord around the neck x1 tight. No episiotomy. First-degree midline laceration repaired with 3-0 Rapide suture under epidural. Kiwi vacuum used x1 gentle pull from low outlet to expedite delivery of the head due to deep decelerations with contractions. Sponges okay. Delivery physician: Heriberto Blanton MD. Presentation: Vertex Amniotic Membrane Rupture Type: Spontaneous Amniotic Fluid Description: Clear Placental Delivery Description: Spontaneous Placenta Disposition: [facility] Cord Vessel Description: 3 Vessels Cord Entanglement: Around neck x 1, tight Infant A Gender: Male (1 minute): 8 (5 minute): 9 Post Vaginal Delivery Medications Given After Delivery: IV Pitocin Episiotomy Description: None Laceration: Midline and 1st degree Complication Complications: None
[2022-05-17] MEDS: 0.9% Saline Lock 10 ML Syringe IV (09:09)
[2022-05-17] MEDS: Ibuprofen 600 MG Tablet PO ×2 (11:12→20:16)
[2022-05-17] MEDS: Acetaminophen 500 MG Tablet 1000 MG PO (18:28)
[2022-05-18 03:55] VITALS: BP 112/62; PULSE 61; RESP 14; TEMP 36; O2SAT 97
--- NOTE | 2022-05-18 07:49 | PCM.PN.OB ---
Objective Data Objective Data day 1. Pain controlled. Lochia minimal. Vital Signs: Vital Signs Temp Pulse Resp BP Pulse Ox O2 Del Method 96.8 F L 61 14 112/62 97 Room Air 05/18/22 03:55 05/18/22 03:55 05/18/22 03:55 05/18/22 03:55 05/18/22 03:55 05/18/22 03:55 Oxygen Delivery Method Room Air Weight: 87.815 kg Body Mass Index (BMI) 33.2 Intake & Output: Intake and Output for Last 24 Hours 05/16/22 05/17/22 05/18/22 23:59 23:59 23:59 Intake Total 561.67 / 561.67 2286.83 / 2286.83 Output Total 700 / 700 Balance 561.67 / 561.67 1586.83 / 1586.83 Lab / Micro Data Attestation: I reviewed the patient's lab results. Result Diagrams: 05/16/22 21:25 Micro: Microbiology 05/16/22 21:25 Nasal Secretion SARS-CoV-2 Antigen (Rapid) - Final Physical Exam Const alert, oriented x3 and no apparent distress HEENT normocephalic Head and Scalp: atraumatic Neck full ROM Resp normal respiratory effort Cardio regular rate GI normal to inspection, nondistended, normoactive bowel sounds GI Narrative: Uterus 2 cm below umbilicus Back/Spine normal ROM Extremity normal to inspection Extremity Narrative: Minimal pedal edema Neuro no focal motor deficits and no sensory deficits noted Psych mental status grossly normal and affect normal Assessment & Plan (1) (spontaneous vaginal delivery): COMMENT: PPD#1 s/p vacuum assisted vaginal delivery. Discharge home today. Follow up 2 week telehealth, 6 week . (2) Anxiety and depression:
[2022-05-18] MEDS: Acetaminophen 500 MG Tablet 1000 MG PO (07:57)
[2022-05-18 08:00] VITALS: BP 125/63; PULSE 85; RESP 16; TEMP 36.6
--- NOTE | 2022-05-18 08:22 | DCINST_ITS ---
Discharge Instructions Diet Discharge Diet: No restrictions Activity Discharge Activity: Return to Normal Activity and May Shower May resume sexual activity in: 4-6 weeks Weight Bearing Status: Weight bearing as tolerated Lifting Restrictions: No greater than 25 pounds Dressing / Incision Call your doctor if you observe: Fever of 101 or Higher, Change in Color, Inability to urinate, Using more than 1 pad per hour, Shortness of breath, Dizziness, Swelling in the ankles, Chest pain and Calf discomfort Follow Up Care Please Follow Up With: Heriberto Blanton MD When: 2-week telehealth appointment and 6-week visit Test Results: Test results from this visit will be discussed in further detail at your follow- up appointment, if applicable. Discharge Plan Admission Admit Date/Time: 05/16/22 20:24 Primary Reason for Your Visit: Vaginal delivery Attending Provider: Heriberto Blanton Primary Care Provider: Salvador Monae Discharge Orders/Prescriptions Prescriptions: No Action [id number] 1 mg Tablet 1 tab PO DAILY Referrals / Follow Up: Salvador Monae, [Primary Care Provider] - Disposition Disposition (needs filled in before D/C Order can be placed): Home, Self Care
[2022-05-18] MEDS: Ibuprofen 600 MG Tablet PO (09:32)
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
[2022-05-18 14:47] VITALS: BP 121/67; PULSE 79; RESP 16; TEMP 36.6
== END 2022-05-18 16:00 | disposition home or self-care (01) | DRG 560 ==
LOC: WPOUT 20:24 → WP 20:29
PROVIDERS: Admitting Provider Obstetrics & Gynecology; PCP Family Medicine; Visit Provider Obstetrics & Gynecology
DX: O69.2XX0 Labor and delivery complicated by other cord entanglement, with compression, not applicable or unspecified (principal); Z37.0 Single live birth; O70.0 First degree perineal laceration during delivery; Z3A.40 40 weeks gestation of pregnancy; Z87.891 Personal history of nicotine dependence
CPT/HCPCS: 59025; 59050; 85025; 86850; 86900; 86901; 87811; 99218; J7120; A4216; G0378; J2405

== ENCOUNTER 2024-09-09 07:27 | Inpatient (IN) | payer MEDICAID, SELFPAY ==
[2024-09-09] VITALS (50 sets, daily range): BP systolic 101–139; BP diastolic 56–82; PULSE 69–111; RESP 16–18; TEMP 36.1–36.8; O2SAT 97–100; BMI 34.2
[2024-09-09] MEDS: Lactated Ringers 1,000 ML 50 ML IV (07:45)
[2024-09-09 08:14] LABS: Absolute Lymphocyte Count 1.64 X10^3/uL (0.83-4.51); Absolute Neutrophil Count 8.5 X10^3/uL (2.0-7.7); Basophil# 0.03 X10^3/uL; Basophil% 0.3 % (0-1); Eosinophil# 0.09 X10^3/uL; Eosinophils% 0.8 % (0-5); Hematocrit 30.2 % (37-47); Hemoglobin 9.1 g/dL (12.0-15.0); Lymphocyte # 1.64 X10^3/ul (0.83-4.51); Lymphocyte % 14.5 % (19-41); Mean Corp Hgb Conc 30.1 g/dL (32-36); Mean Corpuscular Hgb 21.6 pg (27.0-32.0); Mean Corpuscular Volume 71.6 fL (81-99); Mean Platelet Vol. 9.8 fl (6.2-12.0); Monocyte# 0.84 X10^3/uL; Monocyte% 7.4 % (0-10); NRBC Flagged by Analyzer 0 % (0-5); Neutrophil # 8.54 X10^3/uL (2.7-7.7); Neutrophil % 75.8 % (47-70); Platelet Count 324 K/mm3 (150-450); RBC Distribution Width CV 17.5 % (11.6-14.6); RBC Distribution Width SD 45.1 fl (35.1-43.9); Red Blood Count 4.22 M/mm3 (4.2-5.4); White Blood Count 11.3 K/mm3 (4.4-11.0)
[2024-09-09] MEDS: Oxytocin 15 Units/NS 250ml 15 UNITS/250 ML IV.SOLN 2 UNITS IV (08:15)
[2024-09-09] MEDS: 0.9% Normal Saline Single 100 ML IV.SOLN. INTRA-UTER (08:31)
[2024-09-09 09:06] LABS: Syphilis Antibodies Non-reactive
[2024-09-09] MEDS: Lactated Ringers 1,000 ML 999 ML IV (12:48)
[2024-09-09] MEDS: fentaNYL-bupivacaine (epidural) 100 ML BAG EPIDURAL ×3 (13:07→22:45)
[2024-09-09] MEDS: Mag Hydrox/Al Hydrox/Simeth 30 ML UDC PO ×2 (17:34→22:29)
[2024-09-09] MEDS: Acetaminophen 500 MG Tablet PO (17:54)
[2024-09-09] MEDS: Oxytocin 15 Units/NS 250ml 15 UNITS/250 ML IV.SOLN 334 UNITS IV (23:12)
[2024-09-09] MEDS: Oxytocin 15 Units/NS 250ml 15 UNITS/250 ML IV.SOLN 83 UNITS IV (23:44)
[2024-09-10] VITALS (34 sets, daily range): BP systolic 107–135; BP diastolic 56–78; PULSE 74–104; RESP 14–16; TEMP 35.6–37.1; O2SAT 94–99
[2024-09-10] MEDS: Acetaminophen 500 MG Tablet 1000 MG PO (17:37)
[2024-09-10] MEDS: Ibuprofen 600 MG Tablet PO (20:25)
[2024-09-11 03:19] VITALS: BP 106/62; PULSE 79; PULSE 86; RESP 16; TEMP 36.1; TEMP 36.4; O2SAT 98; O2SAT 99
[2024-09-11] MEDS: Ibuprofen 600 MG Tablet PO (03:30)
[2024-09-11] MEDS: Acetaminophen 500 MG Tablet 1000 MG PO (03:30)
[2024-09-11 08:42] VITALS: BP 114/59; PULSE 78; RESP 16; TEMP 36.4
[2024-09-11 08:43] VITALS: BP 114/59; PULSE 78
== END 2024-09-11 11:05 | disposition home or self-care (01) | DRG 560 ==
PROVIDERS: Admitting Provider Obstetrics & Gynecology; PCP Family Medicine; Visit Provider Obstetrics & Gynecology
DX: O70.0 First degree perineal laceration during delivery (principal); Z37.0 Single live birth; Z3A.40 40 weeks gestation of pregnancy; Z87.891 Personal history of nicotine dependence
CPT/HCPCS: 59025; 59050; 85025; 86780; 86850; 86900; 86901; 99221; J7120; G0378